=== PATIENT | female | born 1985 | race Caucasian/White ===

== ENCOUNTER 2017-02-26 15:21 | Inpatient (IN) | payer MEDICAID ==
[~2017-02-26] VITALS: Ht 165.1 cm; Wt 91.6 kg
[~2017-02-26 15:21] MED LIST: CIPRO250 MG PO; NORCO 5/325 MG1 TAB PO
--- NOTE | 2017-02-26 16:20 | NUR ---
TAKEN TO CT SCAN
[2017-02-26 16:32] VITALS: BP 180/114
--- NOTE | 2017-02-26 17:29 | NUR ---
PATIENT TO OF #1 DR. TELLO MADE AWARE
[2017-02-26] MEDS ORDERED: oxyCODONE/APAP 5/325 MG 1 TAB TAB PO ONE (17:35)
[2017-02-26] MEDS ORDERED: IBUPROFEN 600 MG TAB PO ONE (17:35)
[2017-02-26] MEDS ORDERED: ONDANSETRON 4 MG ODT PO ONE (17:35)
--- NOTE | 2017-02-26 17:35 | NUR ---
BLAIR MENON. PATIENT ON OF
--- NOTE | 2017-02-26 17:43 | NUR ---
PER PATIENT,WENT TO CLINIC FOR FLORAL ASSISTANT ISSUES AND BP ELEVATED.INSTRUCTED PT. TO GO TO ER FOR FARTHER EVAL.DENIES DIZZINESS,DENIES,VOMITING,DENIES HEADACHE.JUST BILAT. EAR PAIN
--- NOTE | 2017-02-26 17:56 | NUR ---
MEDICATED FOR PAIN
--- NOTE | 2017-02-26 17:56 | NUR ---
EKG REVIEWED BY BLAIR
[2017-02-26] MEDS ORDERED: LABETALOL 100 MG/20 ML VIAL IVP ONE (19:25)
[2017-02-26] MEDS ORDERED: NITROGLYCERIN 50 MG/D5W PREMIX 250 ML IV ONE (20:00)
[2017-02-26] MEDS ORDERED: DOCUSATE SODIUM 100 MG GELCAP PO PRN (20:10)
[2017-02-26] MEDS ORDERED: ONDANSETRON 4 MG/2 ML VIAL IVP PRN (20:10)
[2017-02-26] MEDS ORDERED: ACETAMINOPHEN 325 MG TAB PO PRN (20:10)
[2017-02-26] MEDS ORDERED: NACL 0.9% 2,000 ML IV ONE (20:15)
[2017-02-26] MEDS ORDERED: NACL 0.9% 1,000 ML IV SCH ×2 (20:15→22:35)
[2017-02-26] MEDS ORDERED: LISINOPRIL 10 MG TAB PO SCH (20:15)
--- NOTE | 2017-02-26 20:42 | NUR ---
Patient will be admitted to care of DR PATEL. Admited to [facility] . Will go to [id number]. Belongings list completed. Report to LARRY YOON.
--- NOTE | 2017-02-26 20:58 | NUR ---
PT TRASFERRED TO MED SURG VIA WC BY MATILDA HARGROVE. NO S/S OF DISTRESS NOTED DURING TRASFER.
--- NOTE | 2017-02-26 21:05 | NUR ---
Admitted from E.. with chief complaint of HIGH BLOOD PRESSURE. A 31 y/o. Female, Appropriate. ALERT AWAKE ORIENTED X4. INITIAL ASSESSMENT DONE. NO S/S OF RESPIRATORY DISTRESS OR SOB NOTED. NO C/O PAIN OR ANY DISCOMFORT AT THIS TIME. SKIN IS INTACT CLEAN DRY AND WARM TO TOUCH. PLAN OF CARE REVIEWED TO PT AND VERBALIZED UNDERSTANDING. oriented to call light, bed, phone,television, bathroom, smoking policy, visiting hours, procedures, ID bracelet on. Belongings list checked. CALL LIGHT WITHIN REACH. WILL CONTINUE TO MONITOR.
[2017-02-27] VITALS: BP 149/88
--- NOTE | 2017-02-27 00:30 | NUR ---
PT IS SLEEPING RIGHT NOW BUT EASILY AROUSABLE. NO S/S OF ANY DISCOMFORT AT THIS TIME. ALL NEEDS ARE ATTENDED. CALL LIGHT WITHIN REACH. WILL CONTINUE TO MONITOR.
--- NOTE | 2017-02-27 05:50 | NUR ---
AM CARE RENDERED. BED LINEN CHANGED. INSTRUCTED PT TO REPOSITION. KEPT CLEAN AND DRY. CALL LIGHT WITHIN REACH. WILL CONTINUE TO MONITOR.
--- NOTE | 2017-02-27 07:10 | NUR ---
PT HAS NO S/S OF ANY DISCOMFORT. PLAN OF CARE ENDORSED TO AM SHIFT NURSE FOR CONTINUITY OF CARE.
--- NOTE | 2017-02-27 07:12 | NUR ---
RECEIVED REPORT FROM NIGHT RN. PT SLEEPING IN BED. NO S/S OF ACUTE DISTRESS. PT DENIES PAIN. AAOX4. IV SITE PATENT AND INTACT. CALL LIGHT WITHIN REACH. SAFETY MEASURES ENSURED. WILL CONTINUE TO MONITOR.
[2017-02-27] MEDS ORDERED: FUROSEMIDE 40 MG/4 ML VIAL IVP SCH (07:21)
[2017-02-27 08:00] VITALS: BP 125/76
--- NOTE | 2017-02-27 08:41 | NUR ---
PATIENT HAS BEEN SCREENED AND CATEGORIZED HIGH NUTRITION RISK. PATIENT WILL BE SEEN WITHIN 1-2 DAYS OF ADMISSION. 02/27/17-02/28/[address]
[2017-02-27] MEDS: PANTOPRAZOLE 40 MG INJ VIAL IVP SCH (08:59)
[2017-02-27] MEDS ORDERED: amLODIPine 5 MG TAB PO SCH (09:00)
[2017-02-27] MEDS ORDERED: LISINOPRIL 20 MG TAB PO SCH (09:00)
[2017-02-27] MEDS ORDERED: LISINOPRIL 10 MG TAB PO SCH (09:00)
--- NOTE | 2017-02-27 10:51 | NUR ---
PT RESTING IN BED. NO S/S OF ACUTE DISTRESS. PT DENIES PAIN. CALL LIGHT WITHIN REACH. SAFETY MEASURES ENSURED. WILL CONTINUE TO MONITOR.
[2017-02-27] MEDS ORDERED: CALCIUM GLUCONATE 500 MG TAB PO SCH ×2 (11:00→21:00)
[2017-02-27] MEDS ORDERED: CALCIUM GLUCONATE 10% 1,000 MG in NACL 0.9% 50 ML IV SCH (11:00)
--- NOTE | 2017-02-27 12:10 | NUR ---
02/27/17 RD INITIAL ASSESSMENT COMPLETED PLEASE REFER TO NUTRITION ASSESSMENT UNDER CARE ACTIVITY FOR ESTIMATED NUTRITIONAL NEEDS. 1. CONTINUE RENAL DIET 2. RD TO FOLLOW-UP 2-3 DAYS; HIGH RISK TERI AMOS RD
--- NOTE | 2017-02-27 12:47 | NUR ---
PT RESTING IN BED. NO S/S OF ACUTE DISTRESS. PT DENIES PAIN. CALL LIGHT WITHIN REACH. SAFETY MEASURES ENSURED. WILL CONTINUE TO MONITOR.
--- NOTE | 2017-02-27 13:34 | NUR ---
CM NOTE ADMISSION REVIEW DONE
[2017-02-27 16:00] VITALS: BP 143/97
--- NOTE | 2017-02-27 16:00 | NUR ---
FIRST UNIT OF PRBC'S STARTED. BLOOD VERIFIED WITH SECOND NURSE. NO S/S OF ACUTE DISTRESS. PT DENIES PAIN. PT ADVISED ON ADVERSE REACTIONS. WILL CONTINUE TO MONITOR.
--- NOTE | 2017-02-27 16:17 | NUR ---
PT RESTING IN BED. NO S/S OF ACUTE DISTRESS OR ADVERSE REACTION. IV SITE PATENT AND INTACT. PT DENIES PAIN. VSS. WILL CONTINUE TO MONITOR.
[2017-02-27] MEDS: CALCIUM ACETATE 667 MG TAB PO SCH (16:58)
--- NOTE | 2017-02-27 18:45 | NUR ---
SECOND UNIT OF PRBC'S STARTED. BLOOD VERIFIED BY SECOND RN. NO S/S OF ACUTE DISTRESS. PT DENIES PAIN. IV SITE PATENT AND INTACT. WILL CONTINUE TO MONITOR.
--- NOTE | 2017-02-27 19:33 | NUR ---
ENDORSED PLAN OF CARE TO NIGHT RN. PT REMAINS IN STABLE CONDITION.
--- NOTE | 2017-02-27 19:35 | NUR ---
RECEIVE DPT IN STABLE CONDITION FROM AM NURSE. AWAKE,ALERT AND ORIENTED X4. MED SURG. AMBULATORY. WITH NO C/O ANY DISCOMFORT NOR PAIN NOTED. JUST STARTED A NEW IV ACCESS ON THE LT HAND #22. 2ND UNIT PRBC TO CONTINUE TRANSFUSION. PLAN OF CARE DISCUSSED AND VERBALIZED UNDERSTANDING. CALL LIGHT PLACED WITHIN EASYR EACH. WILL CONTINUE TO MONITOR.
[2017-02-27] MEDS: ATORVASTATIN 20 MG TAB PO SCH (20:47)
--- NOTE | 2017-02-27 21:50 | NUR ---
2ND UNIT PRBC TRANSFUSION DONE. NO REACTION TO BLOOD NOTED. WILL CONTINUE TO MONITOR.
--- NOTE | 2017-02-27 23:00 | NUR ---
ASLEEP. NO S/S OF ANY DISCOMFORT NOTED.
[2017-02-28] VITALS: BP 130/76
--- NOTE | 2017-02-28 | NUR ---
VITAL SIGNS TAKEN. STABLE. NO C/O ANY PAIN NOTED. WILL CONTINUE TO MONITOR.
--- NOTE | 2017-02-28 02:00 | NUR ---
MADE AROUNDS. ASLEEP. NO S/S OF ANY DISCOMFORT NOTED.
--- NOTE | 2017-02-28 06:20 | NUR ---
PT AWARE OF THE SURGERY BY DR. REYES . CONSENT WAS SIGNED. WILL ENDORSED TO REGINALD WEBB.
--- NOTE | 2017-02-28 07:20 | NUR ---
ENDORSED PT IN STABLE CONDITION TO AM NURSE.
--- NOTE | 2017-02-28 07:25 | NUR ---
RECEIVED REPORT FROM NIGHT RN, PATIENT RESTING IN BED, AAOX4, IV INTACT AND PATENT, PATIENT DENIES PAIN, NO S/S OF DISTRESS NOTED, CALL LIGHT WITHIN REACH, SAFETY MEASURE ENSURED, WILL CONTINUE TO MONITOR.
[2017-02-28 08:00] VITALS: BP 148/97
[2017-02-28] MEDS: CALCIUM ACETATE 667 MG TAB PO SCH ×3 (08:29→17:55)
[2017-02-28] MEDS: PANTOPRAZOLE 40 MG INJ VIAL IVP SCH (08:31)
[2017-02-28] MEDS: amLODIPine 5 MG TAB PO SCH (08:31)
--- NOTE | 2017-02-28 10:00 | NUR ---
PATIENT RESTING AND WATCHING TV IN BED, NO S/S OF ACUTE DISTRESS NOTED, PATIENT DENIES PAIN AT THIS TIME, CALL LIGHT WITHIN REACH, SAFETY MEASURE ENSURED, WILL CONTINUE TO MONITOR.
--- NOTE | 2017-02-28 12:00 | NUR ---
PT IS UP IN BED AND ON HER CELLPHONE, NO ACUTE DISTRESS NOTED, CALL LIGHT WITHIN REACH, WILL CONTINUE TO MONITOR.
--- NOTE | 2017-02-28 14:35 | NUR ---
PT RESTING AND WATCHING TV IN BED, NO ACUTE DISTRESS NOTED, DENIES PAIN AT THIS TIME, CALL LIGHT WITHIN REACH, INSTRUCT TO CALL FOR HELP, SAFETY MEASURE ENSURED, WILL CONTINUE TO MONITOR.
[2017-02-28] MEDS ORDERED: CALCIUM GLUCONATE 10% 1,000 MG in NACL 0.9% 50 ML IV SCH (15:00)
[2017-02-28 16:00] VITALS: BP 117/74
--- NOTE | 2017-02-28 17:55 | NUR ---
PT IS SITTING UP IN BED, PM MEDS GIVEN ORDERED, NO S/S OF ACUTE DISTRESS NOTED, CALL LIGHT WITH IN REACH, WILL CONTINUE TO MONITOR
--- NOTE | 2017-02-28 19:23 | NUR ---
ENDORSED PLAN OF CARE TO NIGHT RN. PT REMAINS STABLE.
--- NOTE | 2017-02-28 19:25 | NUR ---
RECEIVED PT FROM KRISTIN JUAREZ PT IS AAOX4 AMBULATORY HL ON LEFT HAND PATENT PT WILL BE NPO FOR PERITONEAL DIALYSIS CATHETER PLACEMENT TOMORROW INITIAL ASSESSMENT DONE
[2017-02-28 20:00] VITALS: BP 148/93
[2017-02-28] MEDS: HYDROcodone/APAP 5/325 MG 1 TAB TAB PO PRN (21:06)
[2017-02-28] MEDS: ATORVASTATIN 20 MG TAB PO SCH (21:08)
--- NOTE | 2017-02-28 22:33 | NUR ---
PT SLEEPING QUIET AFTER PAIN MEDIC GIVEN
--- NOTE | 2017-03-01 | NUR ---
PT REMAIN STABLE NPO NOT DITRESS NOTED
[2017-03-01 04:00] VITALS: BP 124/72
--- NOTE | 2017-03-01 04:00 | NUR ---
SPONGE BATH GIVEN LINEN CHANGED NOT DISTRESS NOTED
--- NOTE | 2017-03-01 06:18 | NUR ---
PT SLEEPING WELL NOT DISTRESS NOTED NPO CONSENT SINGED SURGICAL CHECK LIST READY AND TICKET TO RIDE
--- NOTE | 2017-03-01 06:58 | NUR ---
LAB CALL TO REPORT CRITICAL LAB RESULT CALCIUM 5.2 BUN 86 [id number] RESIDENTS WERE CALL PENDING TO CALL BACK PT WILL BE ENDORSED TO DAY SHIFT NURSE TO CONTINUITY OF CARE
--- NOTE | 2017-03-01 07:26 | NUR ---
RECEIVED PT IN BED. AWAKE, ALERT, ORIENTED X4. NO SOB NOTED. DENIES ANY PAIN OR DISCOMFORT AT THIS TIME. PT AMBULATORY. POSITIVE BOWEL SOUNDS NOTED ON FOUR QUADRANTS. SKIN INTACT. SAFETY PRECAUTION IN PLACE. CALL LIGHT WITHIN REACH.
[2017-03-01 08:00] VITALS: BP 133/80
[2017-03-01] MEDS ORDERED: CALCIUM GLUCONATE 10% 1,000 MG in NACL 0.9% 50 ML IV SCH (08:00)
--- NOTE | 2017-03-01 08:01 | NUR ---
DR. PATEL IN UNIT AND MADE AWARE OF BUN 86 AND CREA 12.4 LAB RESULT. AND THE CALCIUM OF 5.2 WITH THE HR SHARED SERVICES CONSULTANT MD ORDER PER MOLDER MEAT NURSE.
[2017-03-01] MEDS: PANTOPRAZOLE 40 MG INJ VIAL IVP SCH (08:10)
[2017-03-01] MEDS: amLODIPine 5 MG TAB PO SCH (08:11)
[2017-03-01] MEDS: CALCIUM ACETATE 667 MG TAB PO SCH ×3 (08:11→16:24)
--- NOTE | 2017-03-01 08:34 | NUR ---
PT KEPT NPO EXCEPT MEDS, DR. PATEL AWARE, FOR PERITONEAL CATHETER PLACEMENT.
--- NOTE | 2017-03-01 10:00 | NUR ---
ANGELINA FROM LABS CALLED THAT THE ORDERED STANDBY PACKED CELLS ARE READY FOR WINDOW DRESSER. WILL ENDORSED TO OR NURSE.
--- NOTE | 2017-03-01 11:08 | NUR ---
03/01/17 RD FOLLOW-UP ASSESSMENT COMPLETED PLEASE REFER TO NUTRITION ASSESSMENT UNDER CARE ACTIVITY FOR ESTIMATED NUTRITIONAL NEEDS. 1. WHEN MEDICALLY FEASIBLE, RESUME PO DIET - RENAL DIET 2. RD TO FOLLOW-UP 2-3 DAYS; HIGH RISK TERI AMOS, BRADNEN
--- NOTE | 2017-03-01 11:49 | NUR ---
CALLED OPERATING ROOM TO FOLLOW UP REGARDING PT SCHEDULED PROCEDURE. ACCORDING TO OR STAFF THEY ARE STILL WAITING FOR DR. REYES (SURGEON) TO COME BACK FROM HIS OFFICE. PT MADE AWARE.
[2017-03-01 12:00] VITALS: BP 106/67
[2017-03-01] MEDS ORDERED: BUPIVACAINE-MPF/EPI 0.25% 30 ML VIAL INJ ONE (12:10)
--- NOTE | 2017-03-01 12:22 | NUR ---
MACIEJ RN CAME TO TYING IN MACHINE OPERATOR PT. PT STABLE. DENIES ANY PAIN OR DISCOMFORT. NO SOB. KEPT NPO EXCEPT MEDS. CONSENTS SIGNED BY MD, PT, AND RN. OR CHECKLIST DONE BY ARCHIVES DIRECTOR. TICKET TO RIDE PROVIDED. OR STAFF MADE AWARE OF STANDBY PACKED CELLS 2 UNITS THAT IS READY FOR TYING IN MACHINE OPERATOR FROM THE LABS WHEN THEY NEED IT. PT TRANSFERRED TO OR PER [facility]. ASSISTED BY OR STAFF. PT VERBALIZED UNDERSTANDING.
[2017-03-01] MEDS ORDERED: ONDANSETRON 4 MG/2 ML VIAL ONE (12:30)
[2017-03-01] MEDS ORDERED: NEOSTIGMINE 1:1000 10 MG/10 ML VIAL ONE (12:30)
[2017-03-01] MEDS ORDERED: GLYCOPYRROLATE 0.2 MG/ML VIAL ONE (12:30)
[2017-03-01] MEDS ORDERED: ceFAZolin 1,000 MG VIAL ONE ×2 (12:30→12:46)
[2017-03-01] MEDS ORDERED: DEXAMETHASONE 4 MG/ML VIAL ONE (12:30)
[2017-03-01] MEDS ORDERED: ROCURONIUM 50 MG/5 ML VIAL IV ONE (12:30)
[2017-03-01] MEDS ORDERED: SUCCINYLCHOLINE CHLORIDE 200 MG/10 ML VIAL IVP ONE (12:30)
[2017-03-01] MEDS ORDERED: SEVOFLURANE 250 ML BTL INH ONE (12:30)
[2017-03-01] MEDS ORDERED: PROPOFOL 200 MG/20 ML VIAL IV ONE (12:30)
[2017-03-01] MEDS ORDERED: MIDAZOLAM 2 MG/2 ML VIAL ONE (12:37)
[2017-03-01] MEDS ORDERED: fentaNYL 0.05 MG/ML VIAL ONE (12:38)
[2017-03-01] MEDS ORDERED: HYDROmorphone PFS 2 MG/ML SYR ONE (12:38)
[2017-03-01] MEDS ORDERED: NACL 0.9% 1,000 ML IV SCH (13:16)
[2017-03-01] MEDS ORDERED: HYDROmorphone 1 MG/ML AMP IVP PRN (13:20)
[2017-03-01] MEDS ORDERED: diphenhydrAMINE 50 MG/ML VIAL IVP PRN (13:20)
[2017-03-01] MEDS ORDERED: ONDANSETRON 4 MG/2 ML VIAL IVP PRN (13:20)
[2017-03-01] MEDS: HYDROmorphone PFS 2 MG/ML SYR ONE ×4 (14:18→15:00)
--- NOTE | 2017-03-01 15:10 | NUR ---
Spoke to Astrid at [facility] and faxed at [phone] the H&P, face sheet, oprative report, Neuphrostomy consult, Recent labs, Will fax Hep B anigen and Hep B surface antibody, Hep b core when available to set up outpatient dialysis.
[2017-03-01 15:24] VITALS: BP 95/45
--- NOTE | 2017-03-01 15:24 | NUR ---
PT CAME BACK FROM PROCEDURE. ASSISTED BY OR NURSE ALFREDO. PT DROWSY. KEPT COMFORTABLE. ABDOMINAL WRAP NOTED. 4 BANDAGE NOTED ON PT'S ABDOMEN, DRY AND INTACT. PERITONEAL DIALYSIS CATHETER NOTED ON PT'S PERITONEAL AREA, INTACT AND SECURED. HOOKED TO IV PUMP. INITIAL VITAL SIGNS TAKEN AND RECORDED. Addendum: 03/01/17 at 1534 by Moraima Silver RN ADDITIONAL : HOOKED TO TELEBOX Addendum: 03/01/17 at 1549 by Moraima Silver RN ADDITIONAL PT ON SCD.
--- NOTE | 2017-03-01 15:26 | NUR ---
ALFREDO FROM OR HANDED ME PT EARRINGS IN A CLEAR TRANSPARENT BAG. BECAUSE PT APPEARS DROWSY EARRINGS WAS PLACED IN THE [facility] LOCKED DRAWER WITH AMANDA JUAREZ WITNESS. CHARGE NURSE FATIMAH WOODWARD. WILL GIVE TO PT ONCE SHE IS MORE AWAKE.
--- NOTE | 2017-03-01 15:49 | NUR ---
ICE CHIPS OFFERED TOLERATED WELL.
[2017-03-01] MEDS: HYDROcodone/APAP 5/325 MG 1 TAB TAB PO PRN (16:24)
--- NOTE | 2017-03-01 16:25 | NUR ---
DR. BUSTAMANTE MADE AWARE OF PT COMPLAINT OF PAIN DESPITE OF GIVING DILAUDIDX4 IN OR. MADE AWARE OF LATEST VITAL SIGNS. DR. BUSTAMANTE SAID OK TO GIVE NORCO PRN FOR NOW. WILL CONTINUE TO MONITOR PT PAIN AND ASSESS VITAL SIGNS.
[2017-03-01 16:28] VITALS: BP 94/45
[2017-03-01] MEDS: CALCIUM GLUCONATE 500 MG TAB PO SCH ×2 (17:00→20:28)
--- NOTE | 2017-03-01 17:38 | NUR ---
PT WAS ABLE TO FALL ASLEEP, SNORING. REFUSED TO TAKE DUE MED WHEN TRIED TO AWAKEN AT THIS TIME. DINNER OF CLEAR LIQUID DIET AT BEDSIDE TABLE.
--- NOTE | 2017-03-01 18:30 | NUR ---
PT REFUSED TO EAT HER CLEAR LIQUID DIET FOR DINNER. DENIES ANY PAIN OR DISCOMFORT AT THIS TIME.
--- NOTE | 2017-03-01 19:30 | NUR ---
RECEIVED REPORT, ASSUMED CARE. AAOX4, SITTING IN BED. RT AT BEDSIDE, EDUCATING PT HOW TO USE INCENTIVE SPIROMETER. PERITONEAL DIALYSIS CATHETER INTACT. ABDOMINAL BINDER IN PLACE. NO ACTIVE BLEEDING TO THE SITE AT THIS TIME. DRESSING CLEAN AND DRY. CALL LIGHT PLACED WITHIN EASY REACH. WILL CONTINUE TO MONITOR.
--- NOTE | 2017-03-01 19:30 | NUR ---
PT'S EARRINGS GAVE TO PT AND SHE PUT IT AT BEDSIDE. WILL CONTINUE TO MONITOR
--- NOTE | 2017-03-01 19:30 | NUR ---
PT. KEPT CLEAN DRY AND COMFORTABLE. NEEDS ATTENDED. REASSESSMENT OF PRN PAIN MEDICATION ENDORSED TO NEXT SHIFT. NO SOB NOTED. PT ON STABLE CONDITION.
--- NOTE | 2017-03-01 19:30 | NUR ---
PT EARRINGS ENDORSED TO NEXT SHIFT TO GIVE TO PT WHEN AWAKE.
[2017-03-01] MEDS: ATORVASTATIN 20 MG TAB PO SCH (20:27)
[2017-03-01] MEDS: MORPHINE SULFATE 2 MG/ML SYR IVP PRN (20:29)
--- NOTE | 2017-03-01 22:35 | NUR ---
ROUTINE ROUNDS MADE, PT STILL AWAKE, RESTING COMFORTABLY IN BED. NO RESPIRATORY DISTRESS, NO C/O PAIN AT THIS TIME. WILL CONTINUE TO MONITOR.
[2017-03-02] VITALS: BP 106/61
--- NOTE | 2017-03-02 00:35 | NUR ---
ROUTINE ROUNDS MADE, PT SOUND ASLEEP AT THIS TIME WITH REGULAR BREATHING PATTERN. NO S/S RESPIRATORY DISTRESS. NO FACIAL GRIMACING OR MOANING INDICATING PAIN. WILL CONTINUE TO MONITOR.
[2017-03-02] MEDS: MORPHINE SULFATE 2 MG/ML SYR IVP PRN ×2 (03:49→22:17)
[2017-03-02 04:00] VITALS: BP 117/78
--- NOTE | 2017-03-02 07:18 | NUR ---
PT AWAKE AT THIS TIME, VERBALLY RESPONSIVE. NO C/O PAIN, NO S/S RESPIRATORY DISTRESS. ENDORSED TO NEXT SHIFT FOR CONTINUITY OF CARE. PT IN STABLE CONDITION
--- NOTE | 2017-03-02 07:19 | NUR ---
PT IS AWAKE AND ORIENTED. I INTRODUCED MYSELF AND UPDATED THE BOARD. S/P PORT FOR PERITONEAL DIALYSIS. PT'S H/H IS BETTER AT 8.7/26.5. PT HAS AN ABDOMINAL BINDER. WILL CHECK ON WOUND LATER. PT IS AMBULATORY AND ON CLEAR LIQ DIET. PT DENIES PAIN. NO COMPLAINTS. JUST WANTS TO SEE THE DRHarry THIS MORNING. V/S WITHIN NORMAL RANGE. WILL CONTINUE TO MONITOR PT.
[2017-03-02 08:00] VITALS: BP 135/75
[2017-03-02] MEDS: CALCIUM ACETATE 667 MG TAB PO SCH ×3 (08:00→17:08)
[2017-03-02] MEDS: PANTOPRAZOLE 40 MG INJ VIAL IVP SCH (08:48)
[2017-03-02] MEDS: CALCIUM GLUCONATE 500 MG TAB PO SCH ×2 (08:49→21:03)
[2017-03-02] MEDS: amLODIPine 5 MG TAB PO SCH (08:49)
--- NOTE | 2017-03-02 08:49 | NUR ---
PT REFUSED ALL MORNING MEDS. PT C/O OF SORE THROAT, UNABLE TO SWALLOW. EVEN PROTONIX, PT CLAIMS IT DOESN'T WORK. PT C/O PAIN IN HER THROAT BUT REFUSES MORPHINE, NORCO, OR TYLENOL. PT CLAIMS NO DRS HAVE COME SEEN HER TODAY. WANTS ME TO FIND DR. OSORIO, FLOOR MANAGER AND HAVE HIM PAGED. I WILL FOLLOW UP. WILL RETURN ALL MEDS THAT I PULLED. WILL CONTINUE TO MONITOR PT.
--- NOTE | 2017-03-02 10:35 | NUR ---
PT WANTS TO GO HOME. I TOLD HER THAT SHE NEEDS TO BE SEEN MY THE SURGEON, SUPERVISOR CUTTING DEPARTMENT. SHE SAID SHE WANTS TO LEAVE. I TOLD HER TO WAIT AND TALK TO THE RESIDENT MD THEN DECIDE. HE EXPLAINED THAT SHE NEEDS TO BE SEEN BY MD. DR. REYES CAME IN AND LOOK AT HER PERITONEAL DIALYSIS TUBE AND HER INCISION. REMOVED THE ABD BINDER. SHE NO LONGER NEEDS IT. PER MD IT LOOKS GOOD. DR. GÓMEZ FURTHER INVESTIGATING HER MED HX, SHE TOLD MD SHE HASN'T URINATED SINCE BEFORE THE SURGERY. MD ORDERED BLADDER SCAN. SHE IS RETAINING ABOUT 930ML OF URINE. HE ORDERED A STRAIGHT CATH. THE STUDENT AND INSTRUCTOR TO DO PROCEDURE. PT NOW REQUESTS NORCO. WILL ADMINISTER.
[2017-03-02] MEDS: HYDROcodone/APAP 5/325 MG 1 TAB TAB PO PRN ×3 (11:02→21:06)
--- NOTE | 2017-03-02 11:32 | NUR ---
DR. ARMSTRONG, BROACH GRINDER SAW PT. EXPLAINED TO HER THE IMPORTANCE OF STAYING ANOTHER NIGHT. WILL CHECK LABS AGAIN TOMORROW. SHE WILL SEE HER AGAIN TOMORROW. STRAIGHT CATH- 1100 CLEAR YELLOW URINE DRAINED. REQUESTS ROMERO CATH TO BE INSERTED. WE WILL WAIT A FEW HOURS BEFORE DOING SO. PT TO START WITH CLEAR LIQ D/T HER BOWEL NOT MOVING YET. NO NORCO, KEEPS FROM URINATING. ORDERED CEPACOL TO NUMB THE THROAT. PT VERBALIZED UNDERSTANDING.
[2017-03-02] MEDS ORDERED: MAG SULF 2000 MG/WATER PREMIX 50 ML IV ONE (11:45)
[2017-03-02] MEDS ORDERED: EPOETIN ALFA 20,000 UNITS/ML VIAL SUBQ SCH (11:50)
[2017-03-02 12:00] VITALS: BP 134/84
[2017-03-02] MEDS: BENZOCAINE/MENTHOL 1 LOZ MM PRN (12:07)
[2017-03-02] MEDS: NACL 0.45% 1,000 ML IV SCH (12:10)
--- NOTE | 2017-03-02 13:03 | NUR ---
COMPLAINED THAT HER IV SITE HURTS. SLOWED THE MAG RIDER DOWN FROM 25 TO 10ML/HR. IV PATENT AND INTACT. NO SIGNS OF INFILTRATION. WILL CONTINUE TO MONITOR PT.
--- NOTE | 2017-03-02 14:00 | NUR ---
PT AMBULATED IN THE HALLWAY WITH HAND HARDENER. PT TOLERATED WELL.
--- NOTE | 2017-03-02 15:19 | NUR ---
NO URINATION OF YET. NOTIFIED HER THAT WE SHOULD PUT THE ROMERO CATH IN. SHE AGREES. SHE HAS FAMILY VISITING. WILL DO SO WHEN THEY LEAVE. NO SIGNS OF DISTRESS. WILL CONTINUE TO MONITOR PT.
[2017-03-02 16:00] VITALS: BP 142/94
--- NOTE | 2017-03-02 17:08 | NUR ---
GAVE PROCRIT LATE. I MISSED GIVING IT EARLIER WHEN ORDER AND IT GOT DROPPED B/C OF TIME LAPSE. I GAVE IT ANYWAYS SINCE IT WAS ONE TIME ADMINISTRATION.
--- NOTE | 2017-03-02 17:20 | NUR ---
PT HAD NOT URINATED SINCE THE STRAIGHT CATH. INSERTED ROMERO. PT TOLERATED WELL. DRAINED 550ML. WILL KEEP ROMERO FOR [address] ARMSTRONG.
--- NOTE | 2017-03-02 18:27 | NUR ---
EATING DINNER. PT WAS VERY HAPPY TO HAVE PROGRESSED INTO A FULL RENAL DIET. PT TOLERATED WELL.
--- NOTE | 2017-03-02 19:26 | NUR ---
ENDORSED PT TO THE CFO CONTROLLER NURSE AT BEDSIDE FOR CONTINUITY OF CARE. PT IS IN STABLE CONDITION.
--- NOTE | 2017-03-02 19:27 | NUR ---
PATIENT IS CURRENTLY RESTING IN BED AWAKE ALERT ORIENTED WITH FAMILY AT BEDSIDE.IVF INFUSING WELL IV SITE PATENT.PATIENT DENIES PAIN AND DISCOMFORT AT THIS TIME.PATIENT ABLE TO MAKE NEEDS KNOWN.WILL CONTINUE TO MONITOR.
[2017-03-02 20:00] VITALS: BP 134/89
[2017-03-02] MEDS: ATORVASTATIN 20 MG TAB PO SCH (21:02)
--- NOTE | 2017-03-02 21:02 | NUR ---
PATIENT IS CURRENTLY RESTING IN BED EDUCATION GIVEN ON NIGHT TIME PAIN MEDICATIONS. PATIENT VERBALIZES UNDERSTANDING AND TOOK HER MEDS WELL.
[2017-03-03 00:45] VITALS: BP 100/55
--- NOTE | 2017-03-03 02:02 | NUR ---
PATIENT SLEEPING IN NO DISTRESS WILL CONTINUE TO MONITOR.
[2017-03-03] MEDS: HYDROcodone/APAP 5/325 MG 1 TAB TAB PO PRN ×2 (03:22→14:02)
[2017-03-03] MEDS: BENZOCAINE/MENTHOL 1 LOZ MM PRN (03:25)
--- NOTE | 2017-03-03 03:35 | NUR ---
PATIENT ASSISTED TO AMBULATE WITH THE STANDBY ASSISTANCE OF EVELIN RUIZ,PATIENT WALKED AROUND NURSES STATION AND DID WELL THEN TAKEN BACK TO ROOM AND BED.WILL CONTINUE TO MONITOR.
--- NOTE | 2017-03-03 06:29 | NUR ---
PATIENT SLEEPING COMFORTABLY IN BED NO PAIN OR DISCOMFORT NOTED,IVF INFUSING WELL IV SITE PATENT WILL CONTINUE TO MONITOR.
--- NOTE | 2017-03-03 07:08 | NUR ---
MD OBRIEN CAME AND HE IS AWARE OF CRITICAL LAB VALUES AND IS HERE TO SEE THE PATIENT.
--- NOTE | 2017-03-03 07:22 | NUR ---
PATIENT STABLE REPORT ENDORSED TO RN ALEXANDRIA SHE WILL RESUME CARE OF THE PATIENT.
--- NOTE | 2017-03-03 07:25 | NUR ---
RECEIVED REPORT FROM LARRY LOWE. PT IS RESTING IN BED, A/OX4, AMBULATORY, IV IS ON THE HAND, PATENT, INTACT, FLUSHING WELL, NO S/S OF RESPIRATORY DISTRESS OR DISCOMFORT NOTED, PT IS S/P PERITONEAL ACCESS PLACEMENT ON 03/01, PT HAS ROMERO CATHETER IN PLACE, SAFETY/FALL PRECAUTIONS ARE IN PLACE, DISCUSSED PLAN OF CARE WITH PT, PT VERBALIZED UNDERSTANDING, CALL LIGHT WITHIN REACH, WILL CONTINUE TO MONITOR.
[2017-03-03] MEDS: NACL 0.45% 1,000 ML IV SCH (07:47)
[2017-03-03 08:00] VITALS: BP 114/73
[2017-03-03] MEDS: CALCIUM ACETATE 667 MG TAB PO SCH ×2 (08:26→13:01)
[2017-03-03] MEDS: amLODIPine 5 MG TAB PO SCH (08:27)
[2017-03-03] MEDS: PANTOPRAZOLE 40 MG INJ VIAL IVP SCH (08:27)
[2017-03-03] MEDS ORDERED: SENNA 8.6 MG TAB PO SCH (09:00)
--- NOTE | 2017-03-03 09:30 | NUR ---
PT SITTING IN BED EATING BREAKFAST AND WATCHING TV.
[2017-03-03] MEDS: CALCIUM GLUCONATE 500 MG TAB PO SCH (09:53)
--- NOTE | 2017-03-03 11:35 | NUR ---
PT RESTING IN BED, NO S/S OF RESPIRATORY DISTRESS OR DISCOMFORT NOTED, CALL LIGHT IS WITHIN REACH.
--- NOTE | 2017-03-03 13:30 | NUR ---
ROMERO CATHETER WAS REMOVED, PT TOLERATED WELL, CALL LIGHT WITHIN REACH, WILL CONTINUE TO MONITOR.
[2017-03-03] MEDS ORDERED: LASIX40 MG PO (15:13)
[2017-03-03] MEDS ORDERED: AMLODIPINE BESYL5 M1 PO (15:13)
[2017-03-03] MEDS ORDERED: COLACE100 MG PO (15:16)
[2017-03-03] MEDS ORDERED: CALCIUM ACETAT667 M1 PO (15:16)
[2017-03-03] MEDS ORDERED: SODIUM BICARBO650 MG PO (15:16)
[2017-03-03] MEDS ORDERED: NORCO 325 MG-51 TAB PO (15:16)
--- NOTE | 2017-03-03 15:30 | NUR ---
PT SLEEPING IN BED AT THIS TIME.
[2017-03-03 16:00] VITALS: BP 132/69
--- NOTE | 2017-03-03 16:00 | NUR ---
PT SITTING AT THE SIDE OF THE BED, I ASKED PT IF SHE HAD BEEN ABLE TO URINATE PT SAID SHE HAD, THERE WAS 300ML OF CLEAR, YELLOW URINE IN THE HAT.
--- NOTE | 2017-03-03 17:00 | NUR ---
DISCHARGE INSTRUCTIONS GIVEN, ID WRIST BAND REMOVED, IV REMOVED, CATHETER INTACT.
--- NOTE | 2017-03-03 18:00 | NUR ---
SPOUSE HERE TO FOXING PAINTER PT, PT SAID SHE WANTED TO WALK AND DID NOT WANT THE WHEEL CHAIR. PT LEFT UNIT IN STABLE CONDITION.
[2017-05-15] MEDS ORDERED: VITAMIN D50000 I4 PO (22:10)
[2017-05-15] MEDS ORDERED: ROCALTROL0.5 MCG PO (22:10)
[2017-05-15] MEDS ORDERED: TRANDATE200 M1 PO (22:10)
[2017-05-15] MEDS ORDERED: PHOSLO667 M1 PO (22:10)
== END 2017-03-03 18:00 | disposition home or self-care (01) | DRG 951 ==
LOC: MED 15:21 → MTU 20:09
PROVIDERS: ADMIT Family Medicine; ATTEND Family Medicine
PROC: 30233N1 Transfusion of Nonautologous Red Blood Cells into Peripheral Vein, Percutaneous Approach (ICD-10-PCS; principal; 2017-02-27)
PROC: 0WHG43Z Insertion of Infusion Device into Peritoneal Cavity, Percutaneous Endoscopic Approach (ICD-10-PCS; 2017-03-01)
DX: I67.4 Hypertensive encephalopathy (principal); N17.0 Acute kidney failure with tubular necrosis; E43 Unspecified severe protein-calorie malnutrition; K85.90 Acute pancreatitis without necrosis or infection, unspecified; N18.6 End stage renal disease; E87.2 Acidosis; I16.1 Hypertensive emergency; D66 Hereditary factor VIII deficiency; I12.0 Hypertensive chronic kidney disease with stage 5 chronic kidney disease or end stage renal disease; D50.9 Iron deficiency anemia, unspecified; E78.5 Hyperlipidemia, unspecified; D63.1 Anemia in chronic kidney disease; E83.42 Hypomagnesemia; R33.9 Retention of urine, unspecified; E83.51 Hypocalcemia; E83.39 Other disorders of phosphorus metabolism; E66.9 Obesity, unspecified; N26.1 Atrophy of kidney (terminal); Z53.29 Procedure and treatment not carried out because of patient's decision for other reasons; Z68.33 Body mass index [BMI] 33.0-33.9, adult; Z79.899 Other long term (current) drug therapy; Z71.3 Dietary counseling and surveillance; Z82.49 Family history of ischemic heart disease and other diseases of the circulatory system; Z83.2 Family history of diseases of the blood and blood-forming organs and certain disorders involving the immune mechanism

== ENCOUNTER 2017-03-25 13:50 | Emergency (ER) | payer MEDICAID ==
[~2017-03-25] VITALS: Ht 160 cm; Wt 86.2 kg
[~2017-03-25 13:50] MED LIST changes: +ACET-2869 PO; +AMLO5TAB4 PO; +CALC667T7 PO; +CIPR250T6 PO; -CIPRO250 MG PO; +DOCU-264 PO; +FURO-570 PO; +HYDR-4446 PO; -NORCO 5/325 MG1 TAB PO; +SODI650T2 PO
--- NOTE | 2017-03-25 13:54 | NUR ---
Pt placed in bed 4 by EMS.
[2017-03-25] MEDS ORDERED: SODIUM CHLORIDE FLUSH 10 ML SYR IVF ONE (14:00)
--- NOTE | 2017-03-25 14:00 | NUR ---
Patient being evaluated by Dr. Fisher at bedside.
--- NOTE | 2017-03-25 14:10 | NUR ---
PATIENT PRESENTS TO ED WITH left sided chest pain during peritoneal dialysis . PT STATES felt as pressure and tightness with sob mild nausea SKIN IS PINK/WARM/DRY; AAOX4 WITH EVEN AND STEADY GAIT; LUNGS CLEAR BL; HR EVEN AND REGULAR; ; PATIENT STATES PAIN OF 2/10 AT THIS TIME cp; VSS; PATIENT POSITIONED FOR COMFORT; HOB ELEVATED; BEDRAILS UP X2; BED DOWN. ER MD MADE AWARE OF PT STATUS.
[2017-03-25 14:12] VITALS: BP 145/96
[2017-03-25 14:50] LABS: BASOPHILS # (AUTO) 0.1 K/uL (0.00-0.22); BASOPHILS % (AUTO) 0.8 % (0.0-2.0); EOSINOPHILS # (AUTO) 0.2 K/uL (0-0.4); EOSINOPHILS % (AUTO) 2.7 % (0.0-4.0); HEMATOCRIT 31.5 % (36-48); HEMOGLOBIN 10.4 g/dL (12.0-16.0); LYMPHOCYTES # (AUTO) 1.8 K/uL (2.5-16.5); LYMPHOCYTES % (AUTO) 22.8 % (20.5-51.1); MEAN CORPUSCULAR HEMOGLOBIN 27 pg (27-31); MEAN CORPUSCULAR HGB CONC 33 g/dL (33-37); MEAN CORPUSCULAR VOLUME 81 fL (80-94); MONOCYTES # (AUTO) 0.5 K/uL (0.8-1.0); MONOCYTES % (AUTO) 6.9 % (1.7-9.3); NEUTROPHILS # (AUTO) 5.2 K/uL (1.8-7.7); NEUTROPHILS % (AUTO) 66.8 % (42.2-75.2); PLATELET COUNT (AUTO) 276 K/uL (140-450); RED BLOOD CELL COUNT(AUTO) 3.88 MIL/uL (4.20-5.40); WHITE BLOOD COUNT (AUTO) 7.8 K/uL (4.8-10.8)
--- NOTE | 2017-03-25 14:55 | NUR ---
at bedside---pt continues to denie cp, no sob----will continue to observe for pain control
[2017-03-25 15:09] LABS: PARTIAL THROMBOPLASTIN TIME 35.4 secs (22-35.6); PROTHROMBIN TIME 10.2 secs (10.8-13.4)
[2017-03-25 15:15] LABS: ALBUMIN 2.9 g/dL (3.4-5.0); CALCIUM 6.1 mg/dL (8.5-10.1); TOTAL BILIRUBIN 0.2 mg/dL (0.0-1.0); TOTAL PROTEIN, SERUM 7.7 g/dL (6.4-8.2)
[2017-03-25 15:20] LABS: CREATININE 13.2 mg/dL (0.6-1.3)
[2017-03-25 16:39] VITALS: BP 131/83
== END 2017-03-25 16:39 | disposition home or self-care (01) ==
LOC: MED 13:50
DX: M94.0 Chondrocostal junction syndrome [Tietze] (principal); I12.0 Hypertensive chronic kidney disease with stage 5 chronic kidney disease or end stage renal disease; N18.6 End stage renal disease; Z99.2 Dependence on renal dialysis
CPT/HCPCS: 36415; 71010; 80053; 83880; 84484; 85025; 85610; 85730; 93005; 99285; Q0092

== ENCOUNTER 2017-05-03 16:33 | Emergency (ER) | payer MEDICAID, OTHER ==
[~2017-05-03] VITALS: Ht 158.8 cm; Wt 88.0 kg
[~2017-05-03 16:33] MED LIST changes: -HYDR-4446 PO
[2017-05-03 16:46] VITALS: BP 143/90
[2017-05-03 17:36] LABS: BASOPHILS # (AUTO) 0.1 K/uL (0.00-0.22); BASOPHILS % (AUTO) 0.7 % (0.0-2.0); EOSINOPHILS # (AUTO) 0.4 K/uL (0-0.4); EOSINOPHILS % (AUTO) 3.5 % (0.0-4.0); HEMATOCRIT 31.6 % (36-48); HEMOGLOBIN 10.5 g/dL (12.0-16.0); LYMPHOCYTES # (AUTO) 2.5 K/uL (2.5-16.5); LYMPHOCYTES % (AUTO) 21.8 % (20.5-51.1); MEAN CORPUSCULAR HEMOGLOBIN 28 pg (27-31); MEAN CORPUSCULAR HGB CONC 33 g/dL (33-37); MEAN CORPUSCULAR VOLUME 85 fL (80-94); MONOCYTES # (AUTO) 0.5 K/uL (0.8-1.0); MONOCYTES % (AUTO) 4.5 % (1.7-9.3); NEUTROPHILS # (AUTO) 7.9 K/uL (1.8-7.7); NEUTROPHILS % (AUTO) 69.5 % (42.2-75.2); PLATELET COUNT (AUTO) 317 K/uL (140-450); RED BLOOD CELL COUNT(AUTO) 3.71 MIL/uL (4.20-5.40); RED CELL DISTRIBUTION WIDTH 16.6 % (11.6-13.7); WHITE BLOOD COUNT (AUTO) 11.4 K/uL (4.8-10.8)
[2017-05-03 17:41] LABS: APPEARANCE,URINE CLEAR (CLEAR); BILIRUBIN,URINE NEGATIVE (NEGATIVE); BLOOD, URINE TRACE-I (NEGATIVE); COLOR,URINE YELLOW (YELLOW); LEUKOCYTE ESTERASE ,URINE 1+ (NEGATIVE); NITRITE, URINE NEGATIVE (NEGATIVE); PH,URINE 7.5 (5.0-9.0); PROTEIN,URINE 3+ (NEGATIVE); UGLUCOSE TRACE (NEGATIVE); UROBILINOGEN,URINE 0.2 EU/dL (0.2 - 1)
[2017-05-03 17:51] LABS: BACTERIA,URINE 2+ /HPF (None Seen)
[2017-05-03 17:51] LABS: PARTIAL THROMBOPLASTIN TIME 31.2 secs (22-35.6)
--- NOTE | 2017-05-03 19:26 | NUR ---
TO ER OF1
[2017-05-03 19:42] VITALS: BP 133/87
--- NOTE | 2017-05-03 19:42 | NUR ---
Patient discharged with v/s stable. Written and verbal after care instructions given and explained. Patient alert, oriented and verbalized understanding of instructions. Ambulatory with steady gait. All questions addressed prior to discharge. ID band removed. Patient advised to follow up with PMD. Rx of Macrobid and Tylenol given. Patient educated on indication of medication including possible reaction and side effects. Opportunity to ask questions provided and answered.
== END 2017-05-03 19:42 | disposition home or self-care (01) ==
LOC: MED 16:33
DX: O26.891 Other specified pregnancy related conditions, first trimester (principal); M79.661 Pain in right lower leg; I12.9 Hypertensive chronic kidney disease with stage 1 through stage 4 chronic kidney disease, or unspecified chronic kidney disease; N18.9 Chronic kidney disease, unspecified
CPT/HCPCS: 36415; 76817; 81001; 81025; 84702; 85025; 85610; 85730; 86900; 86901; 87086; 93971; 99285

== ENCOUNTER 2017-10-11 19:25 | Inpatient (IN) | payer OTHER ==
[~2017-10-11] VITALS: Ht 160 cm; Wt 87.5 kg
[~2017-10-11 19:25] MED LIST changes: -ACET-2869 PO; +ACET1TAB93 PO; +AMLO10TA PO; -AMLO5TAB4 PO; +CALC0.5S6 PO; -CALC667T7 PO; -CIPR250T6 PO; -DOCU-264 PO; +DOCU-300 PO; +ERGO500028 PO; +FERR1TAB42 PO; +LOSA25TA22 PO; +MULT-1469 PO; -SODI650T2 PO
[2017-10-11 19:39] VITALS: BP 156/111
[2017-10-11] MEDS ORDERED: NACL 0.9% 1,000 ML IV ONE (22:55)
--- NOTE | 2017-10-11 23:00 | NUR ---
32Y/F PRESENTS TO ER C/O ABD PAIN. PMH DIALYSIS, HTN. NKA. PT HAS HAD LOWER ABD PAIN STARTING IN THE UMBILICUS AREA X4 DAYS, STABBING PAIN, 8/. PT HAS DIALYSIS SITE TO LEFT LOWER ABD, SITE IS REDDENED, TO UPPER AREA THERE IS OPEN SKIN W/ SMALL AMOUNT OF YELLOW DRAINAGE, NO BLEEDING NOTED AT THIS TIME. PT STATES SHE DOES PERITONEAL DIALYSIS EVERYNIGHT. ABD IS ROUND, SOFT, TENDER, ACTIVE BS X4. PT HAS ALSO HAD NIGHT SWEATS. PT STATES W/ DIALYSIS LAST NIGHT THAT ALL SOLUTION WAS RECOVERED. PT AA&OX4, IN BED, SIDE RAILS UP X2.
[2017-10-11] MEDS ORDERED: cefTRIAXone 1,000 MG VIAL ONE (23:13)
[2017-10-11 23:17] LABS: BASOPHILS # (AUTO) 0.2 K/uL (0.00-0.22); EOSINOPHILS # (AUTO) 0.2 K/uL (0-0.4); EOSINOPHILS % (AUTO) 2.7 % (0.0-4.0); HEMATOCRIT 38.1 % (36-48); HEMOGLOBIN 12.5 g/dL (12.0-16.0); LYMPHOCYTES # (AUTO) 2.1 K/uL (2.5-16.5); MEAN CORPUSCULAR HEMOGLOBIN 30 pg (27-31); MEAN CORPUSCULAR HGB CONC 33 g/dL (33-37); MEAN CORPUSCULAR VOLUME 91 fL (80-94); MONOCYTES # (AUTO) 0.4 K/uL (0.8-1.0); MONOCYTES % (AUTO) 5.6 % (1.7-9.3); NEUTROPHILS # (AUTO) 4.7 K/uL (1.8-7.7); NEUTROPHILS % (AUTO) 61.7 % (42.2-75.2); PLATELET COUNT (AUTO) 324 K/uL (140-450); RED BLOOD CELL COUNT(AUTO) 4.17 MIL/uL (4.20-5.40); WHITE BLOOD COUNT (AUTO) 7.6 K/uL (4.8-10.8)
[2017-10-11 23:41] LABS: ALBUMIN 3.1 g/dL (3.4-5.0); ANION GAP 12.8 (8-16); CARBON DIOXIDE 30.9 mmol/L (21-32); POTASSIUM 3.7 mmol/L (3.5-5.1); TOTAL BILIRUBIN 0.3 mg/dL (0.0-1.0)
--- NOTE | 2017-10-12 | NUR ---
PT IN BED SLEEPING, WILL CONTINUE TO MONITOR.
[2017-10-12 00:31] LABS: APPEARANCE,URINE CLEAR (CLEAR); BILIRUBIN,URINE NEGATIVE (NEGATIVE); BLOOD, URINE 2+ (NEGATIVE); COLOR,URINE YELLOW (YELLOW); LEUKOCYTE ESTERASE ,URINE NEGATIVE (NEGATIVE); NITRITE, URINE NEGATIVE (NEGATIVE); UGLUCOSE 1+ (NEGATIVE)
[2017-10-12 00:42] LABS: RBC,URINE 0-5 (RARE) /HPF (0-5)
--- NOTE | 2017-10-12 01:43 | NUR ---
PT IN BED, ON CELL PHONE, COMFORT NEEDS MET, WILL CONTINUE TO MONITOR.
[2017-10-12] MEDS ORDERED: ACETAMINOPHEN 325 MG TAB PO PRN (01:55)
[2017-10-12] MEDS ORDERED: ONDANSETRON 4 MG/2 ML VIAL IVP PRN (01:55)
[2017-10-12] MEDS ORDERED: MORPHINE SULFATE 2 MG/ML SYR IVP ONE (02:00)
[2017-10-12] MEDS ORDERED: METO25TA PO (02:13)
[2017-10-12] MEDS ORDERED: SEVE400T PO (02:16)
[2017-10-12] MEDS ORDERED: HYDR-3293 PO (02:51)
[2017-10-12] MEDS ORDERED: AMOX500C25 PO (02:52)
--- NOTE | 2017-10-12 03:25 | NUR ---
ADMITTED THIS 32 YEAR OLD FEMALE FROM ER PER [facility] WITH CC OF ABDOMINAL PAIN AND DRAINAGE TO PERITONEAL DIALYSIS SITE, AMBULATED TO BED WITH STEADY GAIT, ASSESSMENT DONE, PT CAN SPEAK AND UNDERSTAND BOTH SAMI AND ALBANIAN, VITAL SIGNS TAKEN, BP ELEVATED, ASYMPTOMATIC, WILL RECHECK AGAIN LATER, TOLERABLE PAIN 3/10 AT THIS TIME, WITH LEFT ABDOMEN PERITONEAL DIALYSIS TUBE ACCESS INTACT, REDNESS ON UPPER PORTION OF THE LEFT DIALYSIS SITE WITH MINIMAL PURULENT DRAINAGE NOTED, DRESSING CHANGE DONE, ORIENTED TO ROOM AND CALL LIGHT, PLAN OF CARE DISCUSSED, SAFETY MEASURES IN PLACE, CALL LIGHT WITHIN REACH.
[2017-10-12 03:30] VITALS: BP 162/100
--- NOTE | 2017-10-12 03:44 | NUR ---
Patient will be admitted to care of DR HOPPER. Admited to TELE. Will go to room 111B. Belongings list completed. Report to
--- NOTE | 2017-10-12 04:10 | NUR ---
CHICKEN SANDWICH PROVIDED, CONSUMED 100%, AMBULATED TO BR AND VOIDED FREELY, ALL NEEDS ATTENDED.
[2017-10-12 05:21] VITALS: BP 132/81
--- NOTE | 2017-10-12 05:25 | NUR ---
PT SLEEPING, EASILY AROUSABLE, BP RECHECKED-132/81, DENIES ANY PAIN, NO SOB NOTED, MONITORED CLOSELY.
--- NOTE | 2017-10-12 06:47 | NUR ---
PATIENT HAS BEEN SCREENED AND CATEGORIZED HIGH NUTRITION RISK. PATIENT WILL BE SEEN WITHIN 1-2 DAYS OF ADMISSION. 10/12/17-10/13/17 CARLYLE CARDOZO MS, RDN
--- NOTE | 2017-10-12 07:20 | NUR ---
PT SLEEPING, NO SIGNS OF DISTRESS, REPORT GIVEN TO LARRY GAMEZ FOR CONTINUITY OF CARE.
--- NOTE | 2017-10-12 07:22 | NUR ---
RECEIVED REPORT FROM LITHOGRAPHIC ARTIST NURSE, PT IS SLEEPING IN BED, BUT EASILY AWAKEN, A/OX4, AMBULATORY, PT HAS IV ON HER RIGHT AC, PATENT, INTACT, FLUSHING WELL, PT HAS ERYTHEMA AROUND PERITONEAL DIALYSIS SITE, NO S/S OF RESPIRATORY DISTRESS OR DISCOMFORT NOTED, DISCUSSED PLAN OF CARE WITH PT, PT VERBALIZED UNDERSTANDING, SAFETY/FALL PRECAUTIONS ARE IN PLACE, CALL LIGHT IS WITHIN REACH, WILL CONTINUE TO MONITOR.
[2017-10-12 07:35] LABS: ALBUMIN 2.6 g/dL (3.4-5.0); ANION GAP 15.4 (8-16); CARBON DIOXIDE 28.4 mmol/L (21-32); POTASSIUM 3.8 mmol/L (3.5-5.1); TOTAL BILIRUBIN 0.3 mg/dL (0.0-1.0)
[2017-10-12 07:37] LABS: BASOPHILS # (AUTO) 0.2 K/uL (0.00-0.22); BASOPHILS % (AUTO) 2.9 % (0.0-2.0); CREATININE 17.9 mg/dL (0.6-1.3); EOSINOPHILS # (AUTO) 0.3 K/uL (0-0.4); EOSINOPHILS % (AUTO) 3.9 % (0.0-4.0); HEMATOCRIT 32.5 % (36-48); HEMOGLOBIN 11.2 g/dL (12.0-16.0); LYMPHOCYTES # (AUTO) 2.4 K/uL (2.5-16.5); LYMPHOCYTES % (AUTO) 29.3 % (20.5-51.1); MEAN CORPUSCULAR HEMOGLOBIN 31 pg (27-31); MEAN CORPUSCULAR HGB CONC 34 g/dL (33-37); MEAN CORPUSCULAR VOLUME 89 fL (80-94); MONOCYTES # (AUTO) 0.5 K/uL (0.8-1.0); MONOCYTES % (AUTO) 6.2 % (1.7-9.3); NEUTROPHILS # (AUTO) 4.7 K/uL (1.8-7.7); NEUTROPHILS % (AUTO) 57.7 % (42.2-75.2); PLATELET COUNT (AUTO) 270 K/uL (140-450); RED BLOOD CELL COUNT(AUTO) 3.64 MIL/uL (4.20-5.40); WHITE BLOOD COUNT (AUTO) 8.1 K/uL (4.8-10.8)
[2017-10-12 08:00] VITALS: BP 138/84
--- NOTE | 2017-10-12 08:58 | NUR ---
ADMINISTERED MORNING MEDICATIONS. PATIENT TOLERATED THEM WELL. NO SIGNS OF DISTRESS NOTED. SAFETY PRECAUTIONS IN PLACE. CALL LIGHT WITHIN REACH. WILL CONTINUE TO MONITOR PATIENT.
[2017-10-12] MEDS ORDERED: amLODIPine 5 MG TAB PO SCH ×2 (09:00→10:37)
[2017-10-12] MEDS ORDERED: FUROSEMIDE 40 MG/4 ML VIAL IVP SCH (09:00)
--- NOTE | 2017-10-12 10:00 | NUR ---
CALLED DIALYSIS NURSE RIK TO LET HER KNOW THE PATIENT HAD AN ORDER FOR PERITONEAL DIALYSIS. RIK SAID SHE WOULD BE HERE TONIGHT.
[2017-10-12] MEDS ORDERED: METOPROLOL 25 MG TAB PO SCH (10:33)
[2017-10-12] MEDS ORDERED: LOSARTAN 50 MG TAB PO SCH (10:33)
--- NOTE | 2017-10-12 10:46 | NUR ---
RECEIVED PHONE CALL FROM DR. TILLMAN, PER DOCTOR HAVE DIALYSIS NURSE COME IN TO DO PERITONEAL DIALYSIS EARLIER TO COLLECT PD FLUID AND HAVE IT CULTURED.
[2017-10-12] MEDS: MORPHINE SULFATE 2 MG/ML SYR IVP PRN ×2 (10:47→19:03)
--- NOTE | 2017-10-12 10:47 | NUR ---
CALLED THE DIALYSIS NURSE, RIK, I REACHED HER VOICEMAIL I LEFT HER A MESSAGE LETTING HER KNOW I WAS CALLING HER TO ASK HER IF SHE COULD COME IN TO DO THE PD EARLIER BECAUSE THE FLUID NEEDED TO BE COLLECTED TO CULTURE AND START PT ON ANTI BIOTICS. I LEFT CALL BACK NUMBER.
--- NOTE | 2017-10-12 11:30 | NUR ---
PT SLEEPING IN BED AT THIS TIME, CALL LIGHT IS WITHIN REACH.
--- NOTE | 2017-10-12 11:45 | NUR ---
10/12/17 RD INITIAL ASSESSMENT COMPLETED PLEASE REFER TO NUTRITION ASSESSMENT UNDER CARE ACTIVITY FOR ESTIMATED NUTRITIONAL NEEDS. RD RECOMMENDATIONS: 1. RECOMMEND CHANGE DIET TO RENAL DUE TO ESRD ON PD. 2. CONSULT RDN PRN. 3. RD WILL F/U 5-7 DAYS; LOW RISK. 4. RDN PROVIDED RENAL DIET EDUCATION TO PATIENT; PT ACCEPTED RENAL DIET EDUCATION. CARLYLE CARDOZO, MS, RDN
[2017-10-12] MEDS: SEVELAMER CARBONATE 800 MG TAB PO SCH ×2 (12:21→17:56)
--- NOTE | 2017-10-12 13:24 | NUR ---
PT RESTING IN BED, NO S/S OF RESPIRATORY DISTRESS OR DISCOMFORT NOTED, CALL LIGHT WITHIN REACH.
--- NOTE | 2017-10-12 14:02 | NUR ---
ENDORSED PT TO LARRY CHOUDHARY. FOR CONTINUITY OF CARE, PT STABLE AT THIS TIME.
--- NOTE | 2017-10-12 14:03 | NUR ---
RECEIVED PT FROM FRANCO AT BEDSIDE FOR CONTINUITY OF CARE. PT IS ASLEEP RIGHT NOW. NO SIGNS OF DISTRESS WILL CONTINUE TO MONITOR.
[2017-10-12 16:00] VITALS: BP 143/107
--- NOTE | 2017-10-12 18:10 | NUR ---
PT STARTED ON PD WITH RN AT BEDSIDE. NO SIGNS OF DISTRESS. WILL CONTINUE TO MONITOR.
--- NOTE | 2017-10-12 19:25 | NUR ---
RECEIVED REPORT FROM AM NURSE. PT IS AAOX4. ON ROOM AIR. IV ACCESS INTACT, PATENT AND ASYMPTOMATIC. NO SIGNS OF ACUTE DISTRESS NOTED, RESPIRATIONS EVEN AND UNLABORED. ROMERO CATH IN PLACE, COLOSTOMY BAG IN PLACE WELL. PLAN OF CARE DISCUSSED, PT VERBALIZED UNDERSTANDING. BED IN LOW POSITION, BILATERAL HALF SIDE RAIL UP, CALL LIGHT WITHIN REACH, WILL CONTINUE TO MONITOR.
--- NOTE | 2017-10-12 19:30 | NUR ---
ENDORSED PT TO VELVET CUTTER NURSE AT BEDSIDE FOR CONTINUITY OF CARE. PT IN STABLE CONDITION.
[2017-10-12 20:25] LABS: APPEARANCE,SPUN,BODY FLUID CLEAR (CLEAR); APPEARANCE,UNSPUN,BODY FLUID CLEAR (CLEAR); SPECIMENTYPE,BODY FLUID PERITONEAL
[2017-10-12 20:26] LABS: COLOR,BODY FLUID COLORLESS (LT YELLOW); POLYNUCLEAR, BODY FLUID 0 %; RBC, BODY FLUID 0 /cu. mm.; TOTAL VOLUME,BODY FLUID 100 mL; WBC, BODY FLUID 0 /cu. mm.
--- NOTE | 2017-10-12 21:07 | NUR ---
RECEIVED REPORT FROM AM NURSE. PT IS AAOX4. ON ROOM AIR. IV ACCESS INTACT, PATENT AND ASYMPTOMATIC, SALINE LOCK. NO SIGNS OF ACUTE DISTRESS NOTED, RESPIRATIONS EVEN AND UNLABORED. 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 PLAN OF CARE DISCUSSED, PT VERBALIZED UNDERSTANDING. BED IN LOW POSITION, BILATERAL HALF SIDE RAIL UP, CALL LIGHT WITHIN REACH, WILL CONTINUE TO MONITOR. Addendum: 10/12/17 at 2108 by Yadira Reina RN DISREGARD ABOVE NOTATION.
[2017-10-12] MEDS: METOPROLOL 25 MG TAB PO SCH (21:21)
[2017-10-12] MEDS: DOCUSATE SODIUM 100 MG GELCAP PO SCH (21:21)
[2017-10-12 21:39] LABS: GLUCOSE,BODY FLUID 1776 mg/dL
[2017-10-13] VITALS: BP 171/103
--- NOTE | 2017-10-13 01:05 | NUR ---
PAGED DR HOPPER REGARDING PT HIGH BLOOD SUGAR OF 171/103. WILL AWAIT CALL BACK.
--- NOTE | 2017-10-13 01:30 | NUR ---
DR HOPPER CALLED BACK, ORDERED HYDRALAZINE 10 MG IVP Q 6 HRS FOR SYSTOLIC OVER 160 AND DIASTOLIC OVER 100. WILL ADMINISTER MEDICATION ONCE PHARMACY APPROVES IT. WILL CONTINUE TO MONITOR PT.
[2017-10-13] MEDS ORDERED: hydrALAZINE 20 MG/ML VIAL IVP PRN (02:00)
[2017-10-13] MEDS: LACTULOSE 20 GM/30 ML UDC PO SCH ×2 (02:53→09:25)
--- NOTE | 2017-10-13 02:54 | NUR ---
REASSESSED PT, BLOOD PRESSURE IS 133/95, THEREFORE THERE IS NO NEED TO ADMINISTER PRN HYDRALAZINE AT THIS TIME. WILL CONTINUE TO MONITOR.
--- NOTE | 2017-10-13 07:30 | NUR ---
ENDORSED TO AM NURSE FOR CONTINUITY OF CARE. PT IN STABLE IN CONDITION. DIALYSIS NURSE AT BEDSIDE WITH PT.
--- NOTE | 2017-10-13 07:32 | NUR ---
RECEIVED PATIENT REPORT AT BEDSIDE FROM NIGHT NURSE. PATIENT IS AAOX4 AND SHOWS NO S/S OF ACUTE DISTRESS AT THIS TIME. SKIN INTACT. DENIES PAIN. NOTED IV ON THE RAC SL. PATIENT WAS EXPLAINED POC FOR TODAY AND VERBALIZED UNDERSTANDING. SAFETY PRECAUTIONS IN PLACE, BED IN LOW POSITION WITH CALL LIGHT WITHIN REACH.
[2017-10-13 07:39] LABS: BASOPHILS # (AUTO) 0.3 K/uL (0.00-0.22); BASOPHILS % (AUTO) 4.5 % (0.0-2.0); EOSINOPHILS # (AUTO) 0.3 K/uL (0-0.4); EOSINOPHILS % (AUTO) 4.8 % (0.0-4.0); HEMATOCRIT 36.6 % (36-48); LYMPHOCYTES # (AUTO) 1.9 K/uL (2.5-16.5); LYMPHOCYTES % (AUTO) 25.8 % (20.5-51.1); MEAN CORPUSCULAR HEMOGLOBIN 30 pg (27-31); MEAN CORPUSCULAR HGB CONC 33 g/dL (33-37); MEAN CORPUSCULAR VOLUME 92 fL (80-94); MONOCYTES # (AUTO) 0.5 K/uL (0.8-1.0); MONOCYTES % (AUTO) 7.4 % (1.7-9.3); NEUTROPHILS # (AUTO) 4.3 K/uL (1.8-7.7); NEUTROPHILS % (AUTO) 57.5 % (42.2-75.2); PLATELET COUNT (AUTO) 264 K/uL (140-450); RED BLOOD CELL COUNT(AUTO) 3.96 MIL/uL (4.20-5.40); RED CELL DISTRIBUTION WIDTH 20.6 % (11.6-13.7)
[2017-10-13 07:59] LABS: CARBON DIOXIDE 27.4 mmol/L (21-32); POTASSIUM 4.4 mmol/L (3.5-5.1)
[2017-10-13 08:00] VITALS: BP 150/102
[2017-10-13 08:01] LABS: CREATININE 17.8 mg/dL (0.6-1.3)
[2017-10-13 08:08] LABS: WHITE BLOOD COUNT (AUTO) 7.3 K/uL (4.8-10.8)
--- NOTE | 2017-10-13 08:30 | NUR ---
PATIENT BP IS 150/102 AND HR 61. WILL ADMINISTER SCHEDULED MEDICATIONS.
[2017-10-13] MEDS ORDERED: VIT-B COMP/VIT-C/FOLIC ACID 1 TAB PO SCH (09:00)
[2017-10-13] MEDS ORDERED: amLODIPine 5 MG TAB PO SCH (09:00)
[2017-10-13] MEDS ORDERED: LOSARTAN 50 MG TAB PO SCH ×2 (09:00)
[2017-10-13] MEDS ORDERED: CALCITRIOL 0.25 MCG CAPLF PO SCH (09:00)
[2017-10-13] MEDS: SEVELAMER CARBONATE 800 MG TAB PO SCH ×3 (09:25→17:00)
[2017-10-13] MEDS: DOCUSATE SODIUM 100 MG GELCAP PO SCH (09:25)
[2017-10-13] MEDS: FUROSEMIDE 40 MG TAB PO SCH ×2 (09:26→12:59)
[2017-10-13] MEDS: METOPROLOL 25 MG TAB PO SCH (09:26)
--- NOTE | 2017-10-13 09:31 | NUR ---
ADMINISTERED SCHEDULED MEDICATIONS. PATIENT SWALLOWED WITHOUT DIFFICULTY. PATIENT'S NEEDS MET AT THIS TIME. BED IN LOW POSITION WITH CALL LIGHT WITHIN REACH.
[2017-10-13] MEDS: MORPHINE SULFATE 2 MG/ML SYR IVP PRN (11:11)
[2017-10-13 11:15] VITALS: BP 145/91
--- NOTE | 2017-10-13 11:15 | NUR ---
PATIENT C/O PAIN 6/10 HEADACHE AND UPPER ABD PAIN. PATIENT GIVEN MORPHINE 2 MG IVP. WILL REASSESS IN 30 MIN. BP WAS REASSESSED AND IS 145/91 HR 60.
--- NOTE | 2017-10-13 13:01 | NUR ---
ADMINISTERED SCHEDULED MEDICATIONS. PATIENT REQUESTED ANOTHER LUNCH TRAY. DR DWAINE NOGUERA TO HAVE PATIENT DIET CHANGE TO RENAL DIET. PATIENT REQUESTED CHICKEN SOUP. PATIENT'S NEEDS MET AT THIS TIME.
--- NOTE | 2017-10-13 15:32 | NUR ---
PATIENT IS SLEEPING AND SHOWS NO S/S OF ACUTE DISTRESS ON ROOM AIR.
[2017-10-13] MEDS ORDERED: CEPH250C16 PO (16:10)
[2017-10-13 16:17] VITALS: BP 161/112
--- NOTE | 2017-10-13 16:18 | NUR ---
PATIENT BP IS 161/112 HR 67. WILL ADMINISTER PRN MEDICATIONS OF HYDRALAZINE 10 MG IVP.
[2017-10-13 17:24] VITALS: BP 151/96
--- NOTE | 2017-10-13 17:24 | NUR ---
PATIENT BP IS 151/96 HR 71 AND SHOWS NO S/S OF ACUTE DISTRESS AT THIS TIME. PATIENT DENIES PAIN AND SOB. PATIENT REFUSED MEDICATION DUE AT 1700 BC SHE IS TO BE DISCHARGED AND WILL TAKE IT AT HOME.
--- NOTE | 2017-10-13 17:35 | NUR ---
PATIENT HAS BEEN DISCHARGED. ALL PAPERWORK SIGNED, ALL QUESTIONS ANSWERED AND PATIENT VERBALIZED UNDERSTANDING OF CONTINUITY OF CARE. ALL BELONGINGS IN PATIENT'S POSSESSION. IV DISCONTINUED WITH CANNULA INTACT. WRISTBANDS REMOVED, PATIENT REFUSED WHEELCHAIR AND AMB OFF UNIT WITH STEADY GAIT WITH RN PRESENT AT SIDE. PATIENT LEFT IN STABLE CONDITION.
--- NOTE | 2017-10-13 17:40 | NUR ---
PATIENT LEFT DISCHARGE PAPERWORK, PATIENT WAS CALLED AND LEFT VM.
--- NOTE | 2017-10-15 08:31 | NUR ---
Wound care evaluation not done, pt. discharged.
--- NOTE | 2017-10-16 07:24 | NUR ---
RETRO REVIEW ER REPORT, H&P AND CONSULT FAXED TO [facility] [phone] PHONE KEENA [phone]
== END 2017-10-13 17:35 | disposition home or self-care (01) | DRG 383 ==
LOC: MED 19:25 → MTU 10-12 02:08
PROVIDERS: ADMIT Hospitalist; ATTEND Hospitalist
PROC: 3E1M39Z Irrigation of Peritoneal Cavity using Dialysate, Percutaneous Approach (ICD-10-PCS; principal; 2017-10-12)
DX: L03.311 Cellulitis of abdominal wall (principal); N25.81 Secondary hyperparathyroidism of renal origin; N18.6 End stage renal disease; E88.09 Other disorders of plasma-protein metabolism, not elsewhere classified; I12.0 Hypertensive chronic kidney disease with stage 5 chronic kidney disease or end stage renal disease; N39.0 Urinary tract infection, site not specified; D63.1 Anemia in chronic kidney disease; K59.00 Constipation, unspecified; S31.109A Unspecified open wound of abdominal wall, unspecified quadrant without penetration into peritoneal cavity, initial encounter; Z99.2 Dependence on renal dialysis; Y93.89 Activity, other specified; Y92.89 Other specified places as the place of occurrence of the external cause; Y99.8 Other external cause status
CPT/HCPCS: 36415; 71010; 80048; 80053; 81001; 82945; 83605; 84157; 85025; 87040; 87070; 87075; 87081; 87086; 89051; 90935; 96365; 99285; J0360; J0696; J1940; J2270; J7030; J7060; Q0092